=== PATIENT | male | born 1970 | race Caucasian/White ===

== ENCOUNTER 2017-10-13 06:26 | Day surgery (SDC) | payer OTHER ==
--- NOTE | 2017-10-12 11:12 | EKG ---
Test Date: 2017-10-12 Test Time: 09:25:45 Utilization Engineer: SILAS MEASUREMENT RESULTS: Intervals: Rate: 55 DC: 150 QRSD: 102 QT: 408 QTc: 390 [place]: P: 50 DC: 150 QRS: 69 T: 73 INTERPRETIVE STATEMENTS: Sinus bradycardia Incomplete right bundle branch block Borderline ECG No previous ECG available for comparison Electronically Signed On 10-12-17 11:11:20 CDT by Damian Richards
[2017-10-13] MEDS: OXYMETAZOLINE HCL 0.05% 30ML NAS ONE ×4 (06:37→08:41)
[2017-10-13] MEDS ORDERED: Ringers Lactate 1,000 ML IV ONE ×2 (06:42→09:09)
[2017-10-13] MEDS ORDERED: PROPOFOL 200 MG/20 ML VIAL IV ONE (07:01)
[2017-10-13] MEDS ORDERED: ROCURONIUM 50 MG/5 ML VIAL IV ONE (07:01)
[2017-10-13] MEDS ORDERED: GLYCOPYRROLATE 0.2 MG/ML SYR ONE ×2 (07:02→08:46)
[2017-10-13] MEDS ORDERED: FENTANYL CITR 250 MCG/5 ML ONE (07:03)
[2017-10-13] MEDS ORDERED: ONDANSETRON HCL 40 MG/20 ML VIAL ONE ×2 (07:05→11:07)
[2017-10-13] MEDS ORDERED: NEOSTIGMINE 1 MG/ML -5 ML SYRINGE ONE (07:05)
[2017-10-13] MEDS ORDERED: LIDOCAINE 1% MPF 2 ML AMPULE ONE ×2 (07:05→09:02)
[2017-10-13] MEDS ORDERED: MIDAZOLAM HCL 2 MG/2 ML INJ ONE (07:09)
[2017-10-13] MEDS ORDERED: OXYMETAZOLINE HCL 0.05% 30ML NAS ONE ×2 (07:44→09:06)
[2017-10-13] MEDS ORDERED: LIDOCAINE 1% W/EPI 1:100,000 MDV 50 ML VIAL ONE (07:44)
[2017-10-13] MEDS ORDERED: NA CHLORIDE 0.9% 500 ML ONE (07:45)
[2017-10-13] MEDS ORDERED: EPHEDRINE SULF 50 MG/ML SYR ONE (08:44)
[2017-10-13] MEDS ORDERED: DEXAMETHASONE 10 MG/ML VIAL ONE (08:44)
[2017-10-13] MEDS ORDERED: HYDRALAZINE HCL 20 MG/ML VIAL ONE (09:09)
[2017-10-13] MEDS ORDERED: FENTANYL CITR 100 MCG/2 ML ONE ×2 (09:40→11:07)
[2017-10-13] MEDS ORDERED: LABETALOL 20 MG/4ML SYRINGE IV ONE (09:41)
--- NOTE | 2017-10-13 12:05 | P.BOP ---
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
[2017-10-13] MEDS ORDERED: PROMETHAZINE 25 MG/ML VIAL ONE (12:58)
[2017-10-13] MEDS ORDERED: TRAMADOL HCL 50 MG TAB ONE (15:01)
--- NOTE | 2017-10-14 09:50 | OP ---
Surgeon: Alize Garcia MD Preoperative Diagnosis: Chronic rhinosinusitis. 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 Procedure: Nasal endoscopy with bilateral total ethmoidectomy with sphenoidectomy, bilateral frontal sinusotomy and maxillary antrostomy Intraoperative Findings: Mildly suspicious for allergic fungal sinusitis, though characteristic debris is not noted within the sinuses. Indication For Procedure: Mr. John is a 47-year-old with chronic sinus complaints. He was treated with maximal medical therapy including steroids and antibiotics, and underwent post treatment CT scan showing persistent near- complete opacification of the maxillary sinuses, ethmoid sinuses, sphenoid sinuses, and frontal sinuses without significant khushi bullosa or septal deviation. The risks, benefits, and alternatives to the procedure were discussed with the patient who agreed to proceed. Description Of Procedure: The patient was brought to the operating room. He was placed under general anesthesia via oral endotracheal tube. The head of bed was turned 90 degrees and the nasal hairs were trimmed with scissors. The nasal cavity was packed with Afrin-soaked pledgets. The Fanzter headpiece was secured to the forehead and registration of the CT scan was performed with the laser pointer. Accuracy was confirmed by anihr-qd-sight matching including the tip of the nose, the base of the columella, the glabella, and the medial and lateral canthi and was felt to be very good. This 0-degree endoscope was then used to perform a nasal endoscopy. The right side showed a severely edematous and polypoid middle turbinate with polyps filling the middle meatus and extending partially into the nasal cavity. The right side showed mild purulence and polyps within the middle meatus, but not obstructing the middle meatus. A [place] was used to medialized the left middle turbinate and the maxillary antrostomy was made by removal of the uncinate process with a backbiter and 90-degree Blakesley. The mucosa within the infundibulum was severely edematous and polypoid in nature, and the maxillary antrostomy was enlarged using the microdebrider to remove his polypoid tissue. Very thick eosinophilic mucin the consistency of rubber cement was suctioned from the maxillary sinus. A 30 and 70 degree scope was used to better visualize the maxillary antrostomy and large curved suction was used to forcefully irrigate the sinus and remove all of the eosinophilic debris. The 0-degree scope and straight navigation suction were then used during dissection of the ethmoid bulla. The initial ethmoid cells were carefully dissected and bony partitions and polyps were removed using the microdebrider as well as a straight and 45- degree Blakesley. Dissection was carried back through the basal lamella into the posterior ethmoid cells. The 30-degree scope and curved navigation suction were then used to aid in dissection along the skull base and lamina using image navigation for confirmation of landmarks. The ethmoids were dissected using a 70-degree scope. Careful palpation along the anterior skull base and the area of the frontal recess was performed, but due to the severity of the edema and bleeding in this area, visual confirmation of the frontal recess was difficult. Therefore, the Entellus balloon device was used to carefully palpate in this region. The LED fiber was navigated into the frontal recess with brilliant illumination of the left forehead. The balloon device was then deployed and the frontal sinus was thoroughly irrigated with saline. The balloon device was removed and a 70-degree endoscope was used to view its path. Bony partitions and polypoid tissue were then removed from the frontal recess, resulting in good and adequate opening into the frontal sinus. The 0-degree endoscope with the navigation suction was then used in order to identify the sphenoid os. Additional posterior ethmoid cells along the sphenoid face were carefully dissected and a transethmoidal sphenoidotomy was made. Thick eosinophilic mucin was suctioned and the sphenoid sinus was forcefully irrigated several times with removal of all mucin. The sphenoidotomy was enlarged using the microdebrider to remove a small amount of bony tissue as well as edematous mucosa. Attention was then turned to the right side. The polyps from the middle meatus were removed using a microdebrider and straight Blakesley. The mucosa on the right side was severely inflamed and bleeding moderately impaired dissection. Afrin-soaked pledgets were packed into the sinus cavity intermittently throughout the procedure to aid in hemostasis and improve visualization. The middle turbinate was polypoid and very floppy, and polyps within the middle meatus made identification of the uncinate process quite difficult. By palpation with a curved suction, I was able to enter the maxillary sinus and the microdebrider was used to enlarge the maxillary sinus opening. The ethmoid cavity was then carefully dissected using a straight and 30-degree scopes along with the navigation suctions. Significant thick mucoid material and polyps were noted throughout the anterior and posterior ethmoid cells. During dissection within the ethmoid, a small portion of the lamina was inadvertently removed; the orbital septum, however, remained intact; and there was no apparent injury to the eyes. Again, the area of the frontal recess was quite edematous and difficult to identify. Initial dissection in the frontal recess showed elimination of a small supraorbital ethmoid cell. Therefore, the Globe Icons Interactiveus device was again used to carefully palpate along the skull base in order to identify the frontal recess. The recess was identified with brilliant illumination of the right frontal sinus. After dilation, bony partitions and edematous polypoid mucosa were removed from the recess using a fkklb-qk-hevl and kbzr-qq-nxhj Giraffe. The sinus was filled with thick mucoid drainage, which was forcefully irrigated multiple times in order to remove all possible mucus. The sphenoid on the right side was identified and opened using a small suction. The sphenoid os was enlarged using microdebrider and the sphenoid was thoroughly suctioned. After adequate dissection of all of the sinuses, the sinus cavity was thoroughly irrigated with several aliquots of sterile saline. A Propel mini steroid-eluting stent was then placed within the right and left frontal recesses to reduce swelling and edema in these areas and prevent stenosis of the frontal sinusotomy. A standard Propel steroid-eluting stent was placed within the right and left ethmoid cavities, again in order to reduce postoperative inflammation and to prevent lateralization of the middle turbinate , especially the right, which was particularly floppy. After placement of the stents, there was moderate oozing within the ethmoid cavity and a MeroGel dissolvable sinus dressing was placed within the ethmoid cavity and soaked with sterile saline. The nasopharynx and sinus cavities were then thoroughly sectioned and final inspection revealed good overall hemostasis. All pledget counts were confirmed as correct, and the patient was returned to care of Anesthesia for awakening, extubation in the operating room, which proceeded without difficulty. Disposition: The patient will be discharged home later today with routine postoperative sinus instructions, including irrigations and nasal precautions, and follow up with Dr. Garcia in 10 days for debridement. LATOYA/YULIA Voice ID: [id number] Report ID: [id number] VICTORINO
== END 2017-10-13 15:30 | disposition home or self-care (01) ==
LOC: OR 06:26
PROVIDERS: ATTEND Otolaryngology
PROC: 09TV8ZZ Resection of Left Ethmoid Sinus, Via Natural or Artificial Opening Endoscopic (ICD-10-PCS; 2017-10-13)
PROC: 09TU8ZZ Resection of Right Ethmoid Sinus, Via Natural or Artificial Opening Endoscopic (ICD-10-PCS; 2017-10-13)
PROC: 8E09XBG Computer Assisted Procedure of Head and Neck Region, With Computerized Tomography (ICD-10-PCS; 2017-10-13)
PROC: 8E09XBZ Computer Assisted Procedure of Head and Neck Region (ICD-10-PCS; principal; 2017-10-13 08:45)
DX: J32.4 Chronic pansinusitis (principal); J33.9 Nasal polyp, unspecified
CPT/HCPCS: 87070; 87205; 88304; 88311; 88312; 93005; J0360; J1100; J2001; J2250; J2405; J2550; J2710; J3010

== ENCOUNTER 2018-02-16 10:21 | Emergency (ER) | payer OTHER ==
[2018-02-16 10:55] LABS: Absolute Monocytes 0.7 K/uL (0.1-1.3); Absolute Neutrophil 9.2 K/uL (1.8-8.0); Basophils % 0.2 % (0-1.3); Eosinophils % 0.5 % (0-4.4); Hematocrit 44.3 % (39.6-49.0); Lymphocytes % 9.3 % (15.3-44.8); MPV 9.1 fL (7.6-11.3); Monocytes % 6.7 % (3.3-12.3); RBC Red Blood Cell Count 5.22 M/uL (4.33-5.43)
[2018-02-16] MEDS ORDERED: KETOROLAC 30 MG/ML INJ ONE (10:56)
--- NOTE | 2018-02-16 11:02 | RAD REPORT ---
EXAM DESCRIPTION: CT - Head Brain Wo Cont - 02/16/2018 10:51 am CLINICAL HISTORY: HEADACHE COMPARISON: Sinus Wo Cont dated 06/26/2017 TECHNIQUE: All CT scans are performed using dose optimization technique as appropriate and may inclu de automated exposure control or mA/KV adjustment according to patient size. FINDINGS: No intracranial hemorrhage, hydrocephalus or extra-axial fluid collection.No areas of brai n edema or evidence of midline shift. Extensive opacification of all of the visualized paranasal sinuses is seen compatible with pansinusit is. The calvarium is intact. IMPRESSION: Significant pansinusitis. No acute intracranial abnormality.
--- NOTE | 2018-02-16 11:52 | EDPHYS ---
Physician Documentation [facility] Name: Stefan Degroot Age: 48 yrs Sex: Male : 1970 Arrival Date: 02/16/2018 Time: 10:23 Bed 2 Private MD: ED Physician MelaniaRicardoStefan HPI: 02/16 11:46 This 48 yrs old Male presents to ER via Ambulatory with complaints of gs Vomiting, Sinus Congestion. 11:46 The patient complains of pain to the forehead, right cheek and left cheek. The patient gs describes the headache as a pressure. Onset: The symptoms/episode began/occurred yesterday, and became worse. Associated signs and symptoms: Pertinent positives: vomiting. Severity of symptoms: At its worst the pain was severe, in the emergency department the pain has improved, mildly. The symptoms are alleviated by nothing. the symptoms are aggravated by nothing. The patient has experienced similar episodes in the past, several times. Historical: - Allergies: 10:37 No Known Allergies; ph - Home Meds: 10:37 montelukast oral oral [Active]; ph - PMHx: 10:37 None; ph - PSHx: 10:37 sinus surgery; ph - Immunization history:: Flu vaccine is not up to date. - Social history:: Smoking status: Patient/guardian denies using tobacco. - Ebola Screening: : No symptoms or risks identified at this time. ROS: 11:46 All other systems are negative. gs Exam: 11:46 Eyes: Pupils equal round and reactive to light, extra-ocular motions intact. Lids and gs lashes normal. Conjunctiva and sclera are non-icteric and not injected. Cornea within normal limits. Periorbital areas with no swelling, redness, or edema. ENT: Nares patent. No nasal discharge, no septal abnormalities noted. Tympanic membranes are normal and external auditory canals are clear. Oropharynx with no redness, swelling, or masses, exudates, or evidence of obstruction, uvula midline. Mucous membranes moist. Neck: Trachea midline, no thyromegaly or masses palpated, and no cervical lymphadenopathy. Supple, full range of motion without nuchal rigidity, or vertebral point tenderness. No Meningismus. Chest/axilla: Normal chest wall appearance and motion. Nontender with no deformity. No lesions are appreciated. Cardiovascular: Regular rate and rhythm with a normal S1 and S2. No gallops, murmurs, or rubs. Normal PMI, no JVD. No pulse deficits. Respiratory: Lungs have equal breath sounds bilaterally, clear to auscultation and percussion. No rales, rhonchi or wheezes noted. No increased work of breathing, no retractions or nasal flaring. Abdomen/GI: Soft, non-tender, with normal bowel sounds. No distension or tympany. No guarding or rebound. No evidence of tenderness throughout. Back: No spinal tenderness. No costovertebral tenderness. Full range of motion. Skin: Warm, dry with normal turgor. Normal color with no rashes, no lesions, and no evidence of cellulitis. MS/ Extremity: Pulses equal, no cyanosis. Neurovascular intact. Full, normal range of motion. Neuro: Awake and alert, GCS 15, oriented to person, place, time, and situation. Cranial nerves II-XII grossly intact. Motor strength 5/5 in all extremities. Sensory grossly intact. Cerebellar exam normal. Normal gait. 11:46 Constitutional: The patient appears alert, awake, uncomfortable. 11:46 Head/face: Sinus tenderness, that is marked, is located over the right frontal sinus, left frontal sinus, right ethmoid sinus, left ethmoid sinus, right maxillary sinus and left maxillary sinus. Vital Signs: 10:36 BP 142 / 103; Pulse 86; Resp 22; Temp 97.8(TE); Pulse Ox 98% on R/A; Weight 97.52 kg; ph Height 6 ft. 1 in. (185.42 cm); Pain 10/10; 12:23 BP 125 / 86; Pulse 74; Resp 16; Pulse Ox 100% on R/A; iw 10:36 Body Mass Index 28.37 (97.52 kg, 185.42 cm) ph MDM: 10:40 Patient medically screened. 11:46 Differential diagnosis: migraine, sinusitis, tension headache. Data reviewed: vital gs signs, nurses notes. Response to treatment: the patient's symptoms have markedly improved after treatment, and as a result, I will discharge patient. 02/16 10:41 Order name: CBC with Diff; Complete Time: 11:46 02/16 10:41 Order name: Basic Metabolic Panel; Complete Time: 11:17 02/16 10:41 Order name: CT Head Brain wo Cont; Complete Time: 11:17 gs Administered Medications: 10:52 Drug: TORadol 30 mg Route: IVP; Site: right antecubital; aj1 Disposition: 02/16/18 11:51 Discharged to Home. Impression: Acute recurrent pansinusitis. - Condition is Stable. - Discharge Instructions: Sinusitis, Adult, Managing Your Hypertension. - Prescriptions for Ceftin 500 mg Oral Tablet - take 1 tablet by ORAL route every 12 hours for 10 days; 20 tablet. - Medication Reconciliation Form, Thank You Letter, Antibiotic Education, Prescription Opioid Use form. - Follow up: Private Physician; When: 2 - 3 days; Reason: Re-evaluation by your physician. Signatures: Dispatcher [employer] EDBritt Bloom RN RN aj1 Rica Lopez RN RN iw Hall, Patricia, RN RN Stefan Velázquez MD MD gs Corrections: (The following items were deleted from the chart) 12:24 11:51 02/16/2018 11:51 Discharged to Home. Impression: Acute recurrent pansinusitis. iw Condition is Stable. Forms are Medication Reconciliation Form, Thank You Letter, Antibiotic Education, Prescription Opioid Use. Follow up: Private Physician; When: 2 - 3 days; Reason: Re-evaluation by your physician. gs
--- NOTE | 2018-02-16 11:52 | ER ---
Nurse's Notes [facility] Name: Stefan Degroot Age: 48 yrs Sex: Male : 1970 Arrival Date: 02/16/2018 Time: 10:23 Bed 2 Private MD: Diagnosis: Acute recurrent pansinusitis Presentation: 02/16 10:34 Presenting complaint: Patient states: Sinus infection and headache x 2 days, N/V, ph dizziness and disorientation that began today, pt also reports productive cough, pt A\T\O x 4 in triage. Transition of care: patient was not received from another setting of care. Onset of symptoms was February 16, 2018. Risk Assessment: Do you want to hurt yourself or someone else? Patient reports no desire to harm self or others. Initial Sepsis Screen: Does the patient meet any 2 criteria? No. Patient's initial sepsis screen is negative. Care prior to arrival: None. 10:34 Method Of Arrival: Ambulatory ph 10:34 Acuity: COLETTE 3 ph 12:24 Initial Sepsis Screen: Does the patient have a suspected source of infection? No. iw Patient's initial sepsis screen is negative. Historical: - Allergies: 10:37 No Known Allergies; ph - Home Meds: 10:37 montelukast oral oral [Active]; ph - PMHx: 10:37 None; ph - PSHx: 10:37 sinus surgery; ph - Immunization history:: Flu vaccine is not up to date. - Social history:: Smoking status: Patient/guardian denies using tobacco. - Ebola Screening: : No symptoms or risks identified at this time. Screenin:45 Abuse screen: Denies threats or abuse. Denies injuries from another. Nutritional aj1 screening: No deficits noted. Tuberculosis screening: No symptoms or risk factors identified. 12:23 Fall Risk IV access (20 points). iw Assessment: 10:45 General: Appears in no apparent distress. uncomfortable, Behavior is calm, cooperative, aj1 appropriate for age. Pain: Complains of pain in forehead Pain currently is 10 out of 10 on a pain scale. Neuro: Level of Consciousness is awake, alert, obeys commands, Oriented to person, place, time, situation, Moves all extremities. Full function Speech is normal, Facial symmetry appears normal, Reports dizziness, headache Patient reports that he feels disoriented. Cardiovascular: Patient's skin is warm and dry. Respiratory: Airway is patent Respiratory effort is even, unlabored, Respiratory pattern is regular, symmetrical. GI: Abdomen is flat, non-distended, Reports nausea, vomiting, Patient currently denies abdominal pain. : No signs and/or symptoms were reported regarding the genitourinary system. EENT: Reports sinus pain and pressure. States that he had sinus surgery in October. He was recently on vacation, so he has not been able to rinse his sinuses like he usually does, but his symptoms did not begin until he returned [place] a week ago. Reports taking Dayquil and doing sinus rinses at home.. Derm: No signs and/or symptoms reported regarding the dermatologic system. Skin is pink, warm \T\ dry. normal. Musculoskeletal: No signs and/or symptoms reported regarding the musculoskeletal system. Circulation, motion, and sensation intact. 12:23 Reassessment: Patient appears in no apparent distress at this time. Patient and/or iw family updated on plan of care and expected duration. Pain level reassessed. Patient is alert, oriented x 3, equal unlabored respirations, skin warm/dry/pink. Patient states feeling better. Vital Signs: 10:36 BP 142 / 103; Pulse 86; Resp 22; Temp 97.8(TE); Pulse Ox 98% on R/A; Weight 97.52 kg; ph Height 6 ft. 1 in. (185.42 cm); Pain 10/10; 12:23 BP 125 / 86; Pulse 74; Resp 16; Pulse Ox 100% on R/A; iw 10:36 Body Mass Index 28.37 (97.52 kg, 185.42 cm) ph ED Course: 10:23 Patient arrived in ED. rg4 10:31 Stefan Velázquez MD is Attending Physician. gs 10:36 Triage completed. ph 10:37 Arm band placed on Patient placed in an exam room, on a stretcher. ph 10:41 Britt Amaro, GOKUL is Primary Nurse. aj1 10:45 Patient has correct armband on for positive identification. Bed in low position. Call aj1 light in reach. Side rails up X 1. 10:45 No provider procedures requiring assistance completed. aj1 10:[address] via wheelchair. jj2 10:50 CT completed. Patient tolerated procedure well. Patient moved back from CT. jj2 10:50 CT Head Brain wo Cont In Process Unspecified. EDMS 10:50 Initial lab(s) drawn, by me, sent to lab. Inserted saline lock: 20 gauge in right aj1 antecubital area, using aseptic technique. Blood collected. 12:24 IV discontinued, intact, bleeding controlled, No redness/swelling at site. Pressure iw dressing applied. Administered Medications: 10:52 Drug: TORadol 30 mg Route: IVP; Site: right antecubital; aj1 Outcome: 11:51 Discharge ordered by . gs 12:24 Discharged to home ambulatory, via wheelchair, with family. iw 12:24 Condition: good 12:24 Discharge instructions given to patient, family, Instructed on discharge instructions, follow up and referral plans. medication usage, Demonstrated understanding of instructions, follow-up care, medications, Prescriptions given X 1. 12:24 Patient left the ED. iw Signatures: Dispatcher [employer] EDMS Birtt Amaro RN RN aj1 Junior Bernstein jj2 Rica Lopez RN RN iw Hall, Patricia, RN RN Sukhi, Yamini 4 Stefan Velázquez MD MD gs
== END 2018-02-16 12:24 | disposition home or self-care (01) ==
LOC: ER 10:21
DX: J01.41 Acute recurrent pansinusitis (principal)
CPT/HCPCS: 36415; 70450; 80048; 85025; 96374; 99284